=== PATIENT | male | born 1985 | race Caucasian/White ===

== ENCOUNTER 2023-10-12 13:41 | Emergency (ER) | payer SELFPAY ==
[2023-10-12 13:47] VITALS: BP 142/93; PULSE 121; RESP 20; TEMP 38.2; O2SAT 96; O2SAT 98; BMI 25.8
--- NOTE | 2023-10-12 14:00 | ED.URI1 ---
Documented by User: LINSEY Garza 10/12/23 15:05 HPI - URI/Sore Throat General Chief Complaint: Upper Respiratory Infection Stated Complaint: Nausea, Vomiting, Fever Time Seen by Provider: 10/12/23 13:45 Source: patient Limitations: no limitations History of Present Illness HPI Narrative: Patient is a 38-year-old male who presents to the emergency department for the evaluation of flulike illness that began yesterday. Patient states he has had diffuse body aches, vomiting and diarrhea, nasal congestion. He has had fevers as high as 102.0 Fahrenheit this morning. He did not take any Motrin or Tylenol in the last 2 days. No sick contacts in the home. He denies any significant cough, no chest pain or shortness of breath. Related Data Previous Rx's Medication Instructions Recorded ceakuhilmnxkzqo-byazijxsvghnuot-EO 10 ml PO Q6H PRN cold symptoms 10/12/23 2 mg-30 mg-10 mg/5 mL oral syrup #200 mL (Bromfed DM) ondansetron 4 mg disintegrating 4 mg PO Q6H PRN nausea and 10/12/23 tablet vomiting #12 tabs Allergies Allergy/AdvReac Type Severity Reaction Status Date / Time No Known Drug Allergies Allergy Verified 10/12/23 13:47 Review of Systems ROS Constitutional Reports: fever and chills Ears, nose, mouth, and throat Reports: nasal congestion; Denies: throat pain Cardiovascular Denies: chest pain Respiratory Denies: shortness of breath or cough Gastrointestinal Reports: nausea, vomiting and diarrhea Musculoskeletal Denies: back pain or neck pain Integumentary/Breast Denies: rash Neurological Denies: headache PFSH PFSH Social History Smoking status: Current every day smoker Exam Narrative Exam Narrative: Gen.: Awake, alert, in no distress Head: Normocephalic, atraumatic ENT: Moist mucous membranes, Bilateral TMs clear, no pharyngeal erythema, clear speech Respiratory: No respiratory distress, lungs clear bilaterally; No wheezing or rhonchi Cardio: Tachycardia Extremities: Moves extremities equally Psych: Normal mood and affect Neuro: No focal neuro deficit Skin: Warm, dry, intact Constitutional Vital Signs, click to edit/add: Last Vital Signs Temp 100.8 F H 10/12/23 13:47 Pulse 108 H 10/12/23 14:57 Resp 20 10/12/23 14:57 BP 142/93 H 10/12/23 13:47 Pulse Ox 97 10/12/23 14:57 O2 Del Method Room Air 10/12/23 15:14 Course Vital Signs Vital signs: Vital Signs Temperature 100.8 F H 10/12/23 13:47 Pulse Rate 121 H 10/12/23 13:47 Respiratory Rate 20 10/12/23 13:47 Blood Pressure 142/93 H 10/12/23 13:47 Pulse Oximetry 98 10/12/23 13:47 Oxygen Delivery Method Room Air 10/12/23 13:47 Temperature 100.8 F H 10/12/23 13:47 Pulse Rate 108 H 10/12/23 14:57 Respiratory Rate 10/12/23 14:57 Blood Pressure 142/93 H 10/12/23 13:47 Pulse Oximetry 97 10/12/23 14:57 Oxygen Delivery Method Room Air 10/12/23 15:14 MDM - URI/Sore Throat MDM Narrative Medical decision making narrative: Patient treated with Toradol, Zofran in the ER. He was given additional Decadron and Tylenol. Heart rate has improved in the ER. He had no episodes of emesis in the ER. Oxygenation is stable. Patient is positive for COVID, negative for influenza. He was instructed to quarantine for 5 days from the onset of symptoms, continue Motrin and Tylenol for fever. Bromfed-DM and Zofran given for home. Return to the emergency department if symptoms change or worsen. Medical Records Attestation: I reviewed the patient's medical records. Lab Data Attestation: I reviewed the patient's lab results. Labs: Lab Results 10/12/23 Range/Units 13:50 Influenza Type A Ag Negative Influenza Type B Ag Negative SARS-CoV-2 Ag (CV2AG) Positive A (NEGATIVE) Discharge Plan Discharge Chief Complaint: Upper Respiratory Infection Clinical Impression: COVID-19, Fever Patient Disposition: Home, Self-Care Time of Disposition Decision: 15:02 Condition: Good Prescriptions / Home Meds: New hrlcfbedaqlfypn-immtsnpap-FH [Bromfed DM] 2-30-10 mg/5 mL syrup 10 ml PO Q6H PRN (Reason: cold symptoms) Qty: 200 0RF ondansetron 4 mg tablet,disintegrating 4 mg PO Q6H PRN (Reason: nausea and vomiting) Qty: 12 0RF Instructions: How to Recover from COVID-19 at Home (ED) Stand Alone Forms: Portal Instructions Referrals: Physician,Non-Staff, [Primary Care Provider] - 1 week Discharge Date/Time: 10/12/23 15:17 Documented by User: Roberto Burton MD 10/12/23 20:55 HPI - URI/Sore Throat General Chief Complaint: Upper Respiratory Infection Stated Complaint: Nausea, Vomiting, Fever Time Seen by Provider: 10/12/23 13:45 Related Data Previous Rx's Medication Instructions Recorded jpeyacaqxalcist-gxlgtubcmfqdfah-DE 10 ml PO Q6H PRN cold symptoms 10/12/23 2 mg-30 mg-10 mg/5 mL oral syrup #200 mL (Bromfed DM) ondansetron 4 mg disintegrating 4 mg PO Q6H PRN nausea and 10/12/23 tablet vomiting #12 tabs Allergies Allergy/AdvReac Type Severity Reaction Status Date / Time No Known Drug Allergies Allergy Verified 10/12/23 13:47 PFSH PFSH Social History Smoking status: Current every day smoker Exam Constitutional Vital Signs, click to edit/add: Last Vital Signs Temp 100.8 F H 10/12/23 13:47 Pulse 108 H 10/12/23 14:57 Resp 20 10/12/23 14:57 BP 142/93 H 10/12/23 13:47 Pulse Ox 97 10/12/23 14:57 O2 Del Method Room Air 10/12/23 15:14 Course Vital Signs Vital signs: Vital Signs Temperature 100.8 F H 10/12/23 13:47 Pulse Rate 121 H 10/12/23 13:47 Respiratory Rate 20 10/12/23 13:47 Blood Pressure 142/93 H 10/12/23 13:47 Pulse Oximetry 98 10/12/23 13:47 Oxygen Delivery Method Room Air 10/12/23 13:47 Temperature 100.8 F H 10/12/23 13:47 Pulse Rate 108 H 10/12/23 14:57 Respiratory Rate 20 10/12/23 14:57 Blood Pressure 142/93 H 10/12/23 13:47 Pulse Oximetry 97 10/12/23 14:57 Oxygen Delivery Method Room Air 10/12/23 15:14 MDM - URI/Sore Throat MDM Narrative Medical decision making narrative: Patient treated with Toradol, Zofran in the ER. He was given additional Decadron and Tylenol. Heart rate has improved in the ER. He had no episodes of emesis in the ER. Oxygenation is stable. Patient is positive for COVID, negative for influenza. He was instructed to quarantine for 5 days from the onset of symptoms, continue Motrin and Tylenol for fever. Bromfed-DM and Zofran given for home. Return to the emergency department if symptoms change or worsen. I, Dr Burton, have reviewed the above progress note and course of action in the ER; agree with the above. I have gone over history and physical, and discussed disposition and treatment plan with the patient. Lab Data Labs: Lab Results 10/12/23 Range/Units 13:50 Influenza Type A Ag Negative Influenza Type B Ag Negative SARS-CoV-2 Ag (CV2AG) Positive A (NEGATIVE) Discharge Plan Discharge Chief Complaint: Upper Respiratory Infection Clinical Impression: COVID-19, Fever Patient Disposition: Home, Self-Care Time of Disposition Decision: 15:02 Condition: Good Prescriptions / Home Meds: New rzvlkprdbudxrii-icxrtxalf-VB [Bromfed DM] 2-30-10 mg/5 mL syrup 10 ml PO Q6H PRN (Reason: cold symptoms) Qty: 200 0RF ondansetron 4 mg tablet,disintegrating 4 mg PO Q6H PRN (Reason: nausea and vomiting) Qty: 12 0RF Instructions: How to Recover from COVID-19 at Home (ED) Stand Alone Forms: Portal Instructions Referrals: Physician,Non-Staff, MD [Primary Care Provider] - 1 week Discharge Date/Time: 10/12/23 15:17
[2023-10-12 14:18] LABS: Influenza Virus A Antigen Negative; Influenza Virus B Antigen Negative; Internal Control Within Normal Limits; SARS-CoV-2 Ag POSITIVE (NEGATIVE)
[2023-10-12] MEDS: ONDANSETRON 4 MG RAPDIS TABLET SL (14:26)
[2023-10-12] MEDS: KETOROLAC TROMETHAMINE 60 MG/2 ML VIAL IM (14:26)
[2023-10-12 14:57] VITALS: PULSE 108; RESP 20; O2SAT 97
[2023-10-12] MEDS: ACETAMINOPHEN 500 MG TABLET 1000 MG PO (15:00)
[2023-10-12] MEDS: DEXAMETHASONE SOD PHOS 10 MG/ML VIAL PO (15:01)
== END 2023-10-12 15:17 | disposition home or self-care (01) ==
PROVIDERS: Physician Assistant; Emergency Provider Emergency Medicine
DX: U07.1 COVID-19 (principal); R50.9 Fever, unspecified; F17.200 Nicotine dependence, unspecified, uncomplicated
CPT/HCPCS: 87804; 87811; 96372; 99284; J1100

== ENCOUNTER 2024-09-26 04:42 | Emergency (ER) | payer OTHER, SELFPAY ==
[2024-09-26 04:54] VITALS: BP 134/95; PULSE 94; TEMP 36.7; O2SAT 99; BMI 25.1
--- NOTE | 2024-09-26 05:02 | XR_ITS ---
[facility] [place] [id number] Patient Name: KENROY POWELL MRN: [id number] date: 1985 Sex: M Assigned Patient Location: ER Current Patient Location: ER Accession/Order Number: [id number] Exam Date: 09/26/2024 05:40 Report Date: 09/26/2024 06:01 At the request of: ANASTACIO CHARLES Procedure: XR lumbar spine 2-3V EXAMINATION: XR lumbar spine 2-3V HISTORY: fall COMPARISON: No relevant comparison available. FINDINGS: BONES: No significant spondylosis, scoliosis, fracture, or visible bony lesion. DISC SPACES: Mild-moderate narrowing L5-S1. PARASPINOUS: Negative. No paraspinous abnormality is seen. OTHER: Negative. XR/XR lumbar spine 2-3V IMPRESSION: 1. Mild-moderate disc space narrowing L5-S1. Consider MRI for further evaluation. Electronically authenticated by: YASIR QUINTERO Date: 09/26/2024 06:01
--- OUTSIDE RECORDS SUMMARY | 2024-09-26 05:02 | XMS_ITS | CCD ---
Author Organization [facility] Care Team Providers Care Electrotype Caster Name Role Phone NGA POWERS Referring Unavailable PRIYANGA Referring Unavailable PRIYA NGA Referring Unavailable REQUEST, NONE LISTED Primary Care Unavaila jigna PORTILLO, DR LYNN Rodriguez Admitting Unavailable LINDSEY, DR LYNN Rodriguez Consulting Unavailable LINDSEY, DR LYNN Rodriguez Attending Unavailable VASILE SLOAN Consulting Unavailable Allergies Allergy Classification Reported Allergen(s) Allergy Type Date of Onset Reaction(s) Facility (1 source) Acetaminophen / HYDROcodone Drug Allergy 03-19-2013 [facility] Repository Problems Problem Classification Problem Date Documented Da te Episodic/Chronic E Codes: Fall (1 source) Other fall from one level to another, initial encounter; Translations: [OTH FALL 1 LEVEL TO ANOTHER INITIAL] Onset: 01-02-2020 Episodic E Codes: Unspecified (1 source) Activity, roller skating (inline) and skateboarding; Translations: [ACTV ROLLER SKATING SKATEBOARDING] Onset: 01-02-2020 Episodic Other fractures (1 source) Other specified fracture of right acetabulum, initial encounter for closed fracture; Translations: [OTH SPEC FX RT ACETAB INIT CLOS FX] Onset: 01-02-2020 Episodic Other non-traumatic joint disorders (3 sources) Pain in right hip; Translations: [PAIN IN RIGHT HIP] Onset: 12-31-2019 Episodic Results Test Name Value Interpretation Reference Range Facil ity XR ANKLE RIGHT (MIN 3 VIEWS) on 07-21-2021 XR ANKLE RIGHT (MIN 3 VIEWS) EXAMINATION: THREE XRAY VIEWS OF THE RIGHT ANKLE 07/21/2021 2:09 pm COMPARISON: 25 October 2009 HISTORY: ORDERING SYSTEM PROVIDED HISTORY: Sprain of right ankle, unspecified ligament, subsequent encounter TECHNOLOGIST PROVIDED HISTORY: [employer] ORDER ID:->[id number] FINDINGS: No acute fracture. Sequela of remote injury distal fibula stable to prior. Ankle mortise alignment anatomic. No significant joint effusion. Soft tissues unremarkable. IMPRESSION: No acute findings. Interpreted by: Alfredo Montiel DO Signed by: Alfredo Montiel DO 07/21/21 Final result Normal [facility] XR FOOT RIGHT (MIN 3 VIEWS)o n 07-21-2021 XR FOOT RIGHT (MIN 3 VIEWS) EXAMINATION: THREE XRAY VIEWS OF THE RIGHT FOOT 07/21/2021 2:09 pm COMPARISON: None. HISTORY: ORDERING SYSTEM PROVIDED HISTORY: Sprain of right ankle, unspecified ligament, subsequent encounter TECHNOLOGIST PROVIDED HISTORY: [employer] ORDER ID:->[id number] FINDINGS: There is no evidence of acute fracture. There is normal alignment of the tarsometatarsal joints. No acute joint abnormality. No focal osseous lesion. No focal soft tissue abnormality. IMPRESSION: No acute osseous abnormality. Interpreted by: Den Davis MD Signed by: Den Davis MD 07/21/21 Final result Normal [facility] CT LUMBAR SPINE WO CONTRASTo n 01-01-2020 CT LUMBAR SPINE WO CONTRAST [facility] Department of Radiology [address] [place] [id number] ======== Patient Name: KENROY POWELL : 1985 Sex: M Age: Race: NA Pt. Location: Patient Status: Ordered Date: 01/01/2020 2:25:00 PM Completed Date: 01/01/2020 03:26 PM Requesting Provider: YAHIR MCKEON Attending Provider: Report Copy To: Signs & Symptoms: M25.551 Pain in right hip I10 History: [place] to return to clinic results to [phone] [place] [address] /sulma rebollar at [facility] call ref # [id number] *er Comments: , Please include lumbar verebrae in study. , Prior Authorization #: No prior auth needed per Pa A. from [employer].Ref #[id number] , Please include lumbar verebrae in study. , Prior Authorization #: No prior auth needed per Pa A. from [employer].Ref #[id number] , , , Ordering Provider - YAHIR MCKEON MD , Exam: CT LUMBAR SPINE WO CONTRAST ======== CT LUMBAR SPINE WO CONTRAST 01/01/2020 3:26 PM TECHNOLOGIST COMMENTS: s/p fall 12 ft off a skateboard right hip pain and lower back pain PROTOCOL: Axial CT images of the spine were obtained without IV contrast. TECHNIQUE: Multi detector CT axial slices of the lumbar spine are obtained from the T12 to the S3 vertebral body without IV contrast. Volumetric acquisition sagittal, coronal, and 3-D reconstructions were performed and reviewed on a separate workstation. Appropriate CT dose lowering techniques were utilized. COMPARISON: None FINDINGS: There is preservation of the vertebral body heights and intervertebral discs. No fractures or dislocations are seen. There is mild straightening of the normal lordotic curvature. Minimal 2 mm retrolisthesis of L5 on S1. The paraspinous soft tissues are within normal limits. The visualized lung parenchyma is unremarkable. The visualized abdominal and pelvic viscera is unremarkable. IMPRESSION: * No acute bony abnormality or malalignment. Approved by:Roberto Grant01/01/2020 3:40 PM. I, Rajinder Gruber,have reviewed the images and reports Electronically signed: Rajinder Gruber. Transcribed by: [id number], User Resident: ROBERTO ALEXIS Electronically Signed by: RAJINDER GRUBER @ 01/01/2020 03:56 PM I personally read this/these film(s) with this resident Normal [facility] Comment on above: Order Comment: , Ple ase include lumbar verebrae in study. , Prior Authorization #: No prior auth needed per Pa A. from [facility].Ref #[id number] , Please include lumbar verebrae in study. , Prior Authorization #: No prior auth needed per Pa A. from [employer].Ref #[id number] , , , Ordering Provider - YAHIR MCKEON MD , CT PELVIS WO CONTRASTon 05 CT PELVIS WO CONTRAST [facility] Department of Radiology [address] [place] [phone] ======== Patient Name: KENROY POWELL : 1985 Sex: M Age: Race: NA Pt. Location: Patient Status: Ordered Date: 01/01/2020 2:25:00 PM Completed Date: 01/01/2020 03:26 PM Requesting Provider: YAHIR MCKEON Attending Provider: Report Copy To: Signs & Symptoms: M25.551 Pain in right hip I10 History: [place] return to clinic results to [phone] [place] [facility] [place] [address] /sulma rebollar at [facility] call ref # [id number] *er Comments: , Over 55, or history of Kidney Disease?: N , Possibility of ?: N , Prior Authorization #: No prior auth needed per Pa A. from [employer].Ref #[id number] , Rule Out: Fracture , Special Instructions: Please include lumbar verebrae in study , Over 55, or history of Kidney Disease?: N , Possibility of ?: N , Prior Authorization #: No prior auth needed per Pa A. from [employer].Ref #[id number] , Rule Out: Fracture , Special Instructions: Please include lumbar verebrae in study , , , Ordering Provider - YAHIR MCKEON MD , Exam: CT PELVIS WO CONTRAST ======== CT PELVIS WO CONTRAST 01/01/2020 3:26 PM CLINICAL INDICATIONS: M25.551 Pain in right hip I10 TECHNOLOGIST COMMENTS: s/p fall 12 ft off a skateboard right hip pain and lower back pain QUESTION FOR THE RADIOLOGIST: , Over 55, or history of Kidney Disease?: N , Possibility of ?: N , Prior Authorization #: No prior auth needed per Pa A. from [employer].Ref #[id number] , Rule Out: ...More In Sending System PROTOCOL: Axial CT images of the pelvis were obtained without IV contrast. TECHNIQUE: Multidetector CT axial slices of the without IV contrast. Multiplanar reformats were performed and viewed on a separate workstation and reviewed to further define anatomy and possible pathology. COMPARISON: None. FINDINGS: No fracture or dislocation. No osseous destruction. The no intraperitoneal retrocardial fluid collections in the pelvis. No subcutaneous fluid collections. No bowel obstruction visualized portions of the colon. No enlarged pelvic or inguinal lymph nodes. IMPRESSION: Negative exam. All CT scans at this facility use dose modulation, iterative reconstruction, and/or weight based dosing when appropriate to reduce radiation dose to as low as reasonably achievable Electronically signed: Rajinder Gruber. Transcribed by: [id number], User Resident: Electronically Signed by: RAJINDER GRUBER @ 01/01/2020 03:41 PM Normal [facility] Comment on above: Order Comment: , Ove r 57, or history of Kidney Disease?: N , Possibility of ?: N , Prior Authorization #: No prior auth needed per Pa A. from [employer].Ref #[id number] , Rule Out: Fracture , Special Instructions: Please include lumbar verebrae in study , Over 55, or history of Kidney Disease?: N , Possibility of ?: N , Prior Authorization #: No prior auth needed per Pa A. from [employer].Ref #[id number] , Rule Out: Fracture , Special Instructions: Please include lumbar verebrae in study , , , Ordering Provider - YAHIR MCKEON MD , HIP RIGHT 1 OR 2 VWS WITH PE LVISon 01-01-2020 HIP RIGHT 1 OR 2 VWS WITH PELVIS [facility] Department of Radiology [address] [place] [id number] ======== Patient Name: KENROY POWELL : 1985 Sex: M Age: Race: NA Pt. Location: Patient Status: O Ordered Date: 01/01/2020 12:20:00 PM Completed Date: 01/01/2020 12:22 PM Requesting Provider: YAHIR MCKEON Attending Provider: YAHIR MCKEON Report Copy To: Signs & Symptoms: M25.551 Pain in right hip I10 History: [place] Comments: Exam: HIP RIGHT 1 OR 2 VWS WITH PELVIS ======== HIP RIGHT 1 OR 2 VWS WITH PELVIS 01/01/2020 12:22 PM CLINICAL INDICATIONS: M25.551 Pain in right hip I10 TECHNOLOGIST COMMENTS: fell 12 feet while skateboarding lateral right hip and groin pain PROTOCOL: AP(PA) and Lateral views were obtained. COMPARISON: None FINDINGS: No acute fracture or destructive osseous lesion. Normal anatomic alignment. Minimal degenerative changes of the right hip. IMPRESSION: * No acute fracture. Approved by:Roberto Grant01/01/2020 3:46 PM. I, Rajinder Gruber,have reviewed the images and reports Electronically signed: Rajinder Gruber. Transcribed by: [id number], User Resident: ROBERTO ALEXIS Electronically Signed by: RAJINDER GRUBER @ 01/01/2020 04:07 PM I personally read this/these film(s) with this resident Normal [facility] Encounters Encounter Date Encounter Type Care Provider Facility Start: 07-21-2021 End: 07[facility]24[facility] Start: 12-31-2019 End: 12-31-[address] NONE LISTED REQUEST Facility: Payers Date Payer Category Payer Unknown [id number] 1985 Unknown [id number] 1985 Unknown [id number] 1985 Unknown [id number] 1985 Unknown [id number] 1957 Private Health Insurance [id number] Summary Purpose Family History No Family History Records FoundNo Family History Records FoundNo Family History Records Found Advance Directives No Advanced Directives Records FoundNo Advanced Directives Records FoundNo Advanced Directives Records Found Additional Source Comments (unrecognized sect ion and content) No Status Records FoundNo Status Records FoundNo Status Records Found INFORMATION SOURCE (unrecogn ized section and content) DATE CREATED AUTHOR 01/03/2020 [facility] DATE CREATED AUTHOR AUTHOR'S ORGANIZ ATION 07/25/2021 [facility] DATE CREATED AUTHOR AUTHOR'S ORGANIZ ATION 06/16/2022 [facility] FOR RECORDS PERTAINING TO PATIENTS WHO ARE OR HAVE BEEN ENROLLED IN A CHEMICAL DEPENDENCY/SUBSTANCEABUSE PROGRAM, SOME INFORMATION MAY BE OMITTED. This clinical summary was aggregated from multiple sources. Caution should be exercised in using it in the provision of clinical care. This summary normalizes information from multiple sources, and as a consequence, information in this document may materially change the coding, format and clinical context of patient data. In addition, data may be omitted in some cases. CLINICAL DECISIONS SHOULD BE BASED ON THE PRIMARY CLINICAL RECORDS. [facility] [employer] [facility]. provides no warranty or guarantee of the accuracy or completeness of information in this document.
--- NOTE | 2024-09-26 05:03 | ED_ITS ---
HPI HPI - Back Pain/Injury General Chief Complaint: Back Pain/Injury Stated Complaint: BACK PAIN Time Seen by Provider: 09/26/24 04:44 Source: patient Mode of arrival: walk-in Limitations: no limitations History of Present Illness HPI Narrative: 39-year-old male presents for left lower back pain. Yesterday he slipped on ice and fell and landed on his lower back. The pain goes down his left leg. He did not hit his head and had no other injury. He has no history of back problems. It is worse in certain positions. Related Data Previous Rx's ?Medication ?Instructions ?Recorded fpllbsynsvucvyv-olocwnlivftzzsq-PB 10 ml PO Q6H PRN cold symptoms 10/12/23 2 mg-30 mg-10 mg/5 mL oral syrup #200 mL (Bromfed DM) ondansetron 4 mg disintegrating 4 mg PO Q6H PRN nausea and 10/12/23 tablet vomiting #12 tabs methocarbamol 750 mg tablet 750 mg PO Q8H #20 tabs 09/26/24 prednisone 10 mg tablet See Rx Instructions .Route 09/26/24 .COMPLEX #30 tabs Allergies Allergy/AdvReac Type Severity Reaction Status Date / Time No Known Drug Allergies Allergy Verified 09/26/24 05:02 Opioid HPI Opioid Management Most Recent Opioid Data: Last Pain Scale 7 09/26/24 05:32 09/26/24 Review of Systems ROS Narrative A ten point review of systems is negative except as noted above. PFSH PFSH Social History Smoking status: Current every day smoker Little interest or pleasure in doing things: not at all Feeling down, depressed, or hopeless: not at all Exam Narrative Exam Narrative: Nurses note and vital signs reviewed and patient is not hypoxic. General: The patient appears well and in no apparent distress. Patient is resting comfortably on cart. Skin: Warm, dry, no pallor noted. There is no rash noted. Head: Normocephalic, atraumatic Eye: Normal conjunctiva, no drainage Ears, Nose, Mouth, and Throat: oral mucosa is moist. Nares patent. Cardiovascular: Regular Rate and Rhythm Respiratory: Patient is in no distress, no accessory muscle use, lungs are clear to auscultation, no wheezing, rales or rhonchi Back: Cervical and thoracic spines are nontender. No midline lumbar tenderness. He has diffuse tenderness in the left lower back but there is no bruise or abrasion or rash in that area. GI: Soft and nontender Musculoskeletal: The patient has no evidence of calf tenderness, no pitting edema, symmetrical pulses noted bilaterally Neurological: A&O, normal speech; motor strength intact in his lower extremities Psychiatric: Cooperative Constitutional Vital Signs, click to edit/add: Last Vital Signs Temp 98.1 F 09/26/24 04:54 Pulse 94 H 09/26/24 04:54 Resp 18 09/26/24 04:54 BP 134/95 H 09/26/24 04:54 Pulse Ox 99 09/26/24 04:54 O2 Del Method Room Air 09/26/24 04:54 Course Vital Signs Vital signs: Vital Signs Temperature 98.1 F 09/26/24 04:54 Pulse Rate 94 H 09/26/24 04:54 Respiratory Rate 18 09/26/24 04:54 Blood Pressure 134/95 H 09/26/24 04:54 Pulse Oximetry 99 09/26/24 04:54 Oxygen Delivery Method Room Air 09/26/24 04:54 Temperature 98.1 F 09/26/24 04:54 Pulse Rate 94 H 09/26/24 04:54 Respiratory Rate 18 09/26/24 04:54 Blood Pressure 134/95 H 09/26/24 04:54 Pulse Oximetry 99 09/26/24 04:54 Oxygen Delivery Method Room Air 09/26/24 04:54 MDM - Back Pain/Injury MDM Narrative Medical decision making narrative: X-rays on my interpretation showed no acute findings. He was given IM Toradol and feels improved and is discharged home on prednisone and Robaxin. Treatment diagnosis and follow-up were discussed with the patient. Differential Diagnosis Differential diagnosis: Likely lumbar radiculopathy, sciatica, strain of lumbar region and other (Contusion) Imaging Data Lumbar x-ray: Radiologist's impression: ITS Impressions Lumbar Spine X-Ray 09/26/24 05:02 IMPRESSION: 1. Mild-moderate disc space narrowing L5-S1. Consider MRI for further evaluation. Electronically authenticated by: YASIR QUINTERO Date: 09/26/2024 06:01 Discharge Plan Discharge Chief Complaint: Back Pain/Injury Clinical Impression: Low back pain Patient Disposition: Home, Self-Care Time of Disposition Decision: 06:03 Condition: Good Mode of Transportation: Private Vehicle Prescriptions / Home Meds: New prednisone 10 mg tablet See Rx Instructions .ROUTE .COMPLEX Qty: 30 0RF Rx Instructions: 4 by mouth daily for three days then 3 by mouth daily for three days then 2 by mouth daily for three days then 1 by mouth daily for three days methocarbamol 750 mg tablet 750 mg PO Q8H Qty: 20 0RF No Action [id number]-gnoqnsbco-IZ [Bromfed DM] 2-30-10 mg/5 mL syrup 10 ml PO Q6H PRN (Reason: cold symptoms) Qty: 200 0RF ondansetron 4 mg tablet,disintegrating 4 mg PO Q6H PRN (Reason: nausea and vomiting) Qty: 12 0RF Print Language: Finnish Instructions: Acute Low Back Pain (ED) Referrals: Physician,Non-Staff, MD [Primary Care Provider] - 1 week
[2024-09-26] MEDS: KETOROLAC TROMETHAMINE 60 MG/2 ML VIAL IM (05:25)
== END 2024-09-26 06:12 | disposition home or self-care (01) ==
PROVIDERS: Emergency Provider Emergency Medicine
DX: M54.50 Low back pain, unspecified (principal); F17.200 Nicotine dependence, unspecified, uncomplicated
CPT/HCPCS: 72100; 96372; 99284; J1885

== ENCOUNTER 2024-12-07 03:01 | Emergency (ER) | payer OTHER, SELFPAY ==
[2024-12-07 03:06] VITALS: BP 117/97; PULSE 89; TEMP 36.7; O2SAT 98; BMI 25.1
--- NOTE | 2024-12-07 03:19 | ED.LOWEXI1 ---
HPI HPI - Extremity Injury (Lower) General Chief Complaint: Extremity Injury, Lower Stated Complaint: LOWER EXTREMITY INJURY Time Seen by Provider: 12/07/24 03:17 Source: patient Mode of arrival: walk-in Limitations: no limitations History of Present Illness HPI Narrative: rolled right ankle at work. has pain . No swelling. complains of pain when walking. No associated numbness or weakness. No other injury Related Data Allergies Allergy/AdvReac Type Severity Reaction Status Date / Time No Known Drug Allergies Allergy Verified 12/07/24 03:11 Opioid HPI Opioid Management Most Recent Pain and Opioid Data: Last Pain Scale 8 12/07/24 03:16 12/07/24 Review of Systems ROS Status of ROS 10 or more systems reviewed and unremarkable except as noted in history and below PFSH [facility] [place] Social History Smoking status: Current every day smoker Little interest or pleasure in doing things: not at all Feeling down, depressed, or hopeless: not at all Exam Constitutional Vital Signs, click to edit/add: Last Vital Signs Temp 98.1 F 12/07/24 03:06 Pulse 89 12/07/24 03:06 Resp 16 12/07/24 03:06 BP 117/97 H 12/07/24 03:06 Pulse Ox 98 12/07/24 03:06 O2 Del Method Room Air 12/07/24 03:06 Common normals: no apparent distress, average body habitus, oriented x3, no limitations, healthy appearing, alert and well nourished [facility] Common normals: normocephalic and head/scalp atraumatic Respiratory Common normals: normal respiratory effort, no retractions, no use of accessory muscles and clear to auscultation bilaterally Cardio Common normals: regular rate, regular rhythm, S1 normal heart sound and S2 normal heart sound Extremity Common normals: normal to inspection Other: mild tenderness right ankle . no swelling or discoloration Neuro Common normals: oriented x3, CN's II-XII intact bilaterally and moves all extremities Psych Appearance: grossly normal Course Vital Signs Vital signs: Vital Signs Temperature 98.1 F 12/07/24 03:06 Pulse Rate 89 12/07/24 03:06 Respiratory Rate 16 12/07/24 03:06 Blood Pressure 117/97 H 12/07/24 03:06 Pulse Oximetry 98 12/07/24 03:06 Oxygen Delivery Method Room Air 12/07/24 03:06 Temperature 98.1 F 12/07/24 03:06 Pulse Rate 89 12/07/24 03:06 Respiratory Rate 16 12/07/24 03:06 Blood Pressure 117/97 H 12/07/24 03:06 Pulse Oximetry 98 12/07/24 03:06 Oxygen Delivery Method Room Air 12/07/24 03:06 MDM - Extremity Injury (Lower) MDM Narrative Medical decision making narrative: present from work after twisting his ankle. No obvious swelling. Does have tenderness at the lateral malleolus. ROM uncomfortable. Complains of pain when ambulatory. Xray per my preliminary review is neg. Patient discharged with work restrictions and is to follow up with Industrial medicine Discharge Plan Discharge Chief Complaint: Extremity Injury, Lower Clinical Impression: Right ankle sprain Patient Disposition: Home, Self-Care Print Language: Malay Instructions: Ankle Sprain (ED) Additional Instructions: follow up with Industrial medicine tomorrow for recheck Referrals: Gage Marks MD [Primary Care Provider] - 1 week
== END 2024-12-07 06:56 | disposition home or self-care (01) ==
PROVIDERS: Emergency Provider Internal Medicine; PCP Preventive Medicine Preventive Medicine/Occupational Environmental Medicine
DX: S93.401A Sprain of unspecified ligament of right ankle, initial encounter (principal); X50.1XXA Overexertion from prolonged static or awkward postures, initial encounter
CPT/HCPCS: 73610; 99283